=== PATIENT | male | born 1955 | race Caucasian/White ===

== ENCOUNTER 2018-10-27 11:45 | Emergency (ER) | payer SELFPAY ==
[~2018-10-27] VITALS: Ht 175.3 cm; Wt 79.4 kg
[~2018-10-27 11:45] MED LIST: ALBU90OI INH; Bactrim Ds Tab1 EACH PO; HYDACE5 PO; IBUP600 PO; OXYACE5T PO; PENVK250 PO; PENVK500 PO; Prednisone50 MG PO; RXHYDACE PO; RXPENVK250 PO
[2018-10-27] MEDS ORDERED: Vistaril25 MG PO (11:54)
[2018-10-27] MEDS ORDERED: NIX COMPLET324.86 ML TOP (12:02)
== END 2018-10-27 12:07 | disposition home or self-care (01) ==
LOC: ER 11:45
DX: S40.862A Insect bite (nonvenomous) of left upper arm, initial encounter (principal); S40.861A Insect bite (nonvenomous) of right upper arm, initial encounter; F17.200 Nicotine dependence, unspecified, uncomplicated; W57.XXXA Bitten or stung by nonvenomous insect and other nonvenomous arthropods, initial encounter
CPT/HCPCS: 99282

== ENCOUNTER 2022-10-19 07:48 | Emergency (ER) | payer MEDICARE, OTHER ==
[~2022-10-19] VITALS: Ht 177.8 cm; Wt 72.6 kg
[~2022-10-19 07:48] MED LIST changes: +CEPH500 PO; +NIX COMPLET324.86 ML TOP; +Vistaril25 MG PO
[2022-10-19] MEDS ORDERED: PERM5TC TOP (08:17)
== END 2022-10-19 08:30 | disposition home or self-care (01) ==
LOC: ER 07:48
DX: B86 Scabies (principal); F17.200 Nicotine dependence, unspecified, uncomplicated
CPT/HCPCS: 99282

== ENCOUNTER 2022-12-07 08:33 | Emergency (ER) | payer MEDICARE, OTHER ==
[~2022-12-07] VITALS: Ht 175.3 cm; Wt 68.0 kg
[~2022-12-07 08:33] MED LIST changes: +PERM5TC TOP
[2022-12-07] MEDS ORDERED: Bactrim Ds Tab1 EACH PO (10:37)
== END 2022-12-07 10:46 | disposition home or self-care (01) ==
LOC: ER 08:33
DX: L02.413 Cutaneous abscess of right upper limb (principal); F17.200 Nicotine dependence, unspecified, uncomplicated
CPT/HCPCS: 10061; 87070; 87075; 87205; 99283-25

== ENCOUNTER 2023-02-16 11:54 | Emergency (ER) | payer MEDICARE, OTHER ==
[~2023-02-16] VITALS: Ht 177.8 cm; Wt 90.7 kg
[2023-02-16 12:35] VITALS: BP 173/90
[2023-02-16] MEDS ORDERED: NIX TOP (12:38)
[2023-02-17] MEDS ORDERED: PERM5TC TOP (14:23)
== END 2023-02-16 12:40 ==
LOC: ER 11:54
DX: B86 Scabies (principal); Z79.899 Other long term (current) drug therapy; F17.200 Nicotine dependence, unspecified, uncomplicated
CPT/HCPCS: 99282

== ENCOUNTER 2023-05-09 13:06 | Emergency (ER) | payer MEDICARE, OTHER ==
[~2023-05-09] VITALS: Ht 177.8 cm; Wt 68.0 kg
[~2023-05-09 13:06] MED LIST changes: +NIX TOP
[2023-05-09 15:38] VITALS: BP 135/88
[2023-05-09] MEDS ORDERED: PERM5TC TOP (15:41)
== END 2023-05-09 15:42 | disposition home or self-care (01) ==
LOC: ER 13:06
DX: B86 Scabies (principal); F17.200 Nicotine dependence, unspecified, uncomplicated
CPT/HCPCS: 99282

== ENCOUNTER 2023-09-30 11:08 | Emergency (ER) | payer MEDICARE, OTHER ==
[~2023-09-30] VITALS: Ht 175.3 cm; Wt 63.5 kg
[2023-09-30 11:31] LABS: BASOPHILS ABSOLUTE AUTO 0.09 K/mm3 (0.00-0.23); BASOPHILS PERCENT AUTO 1 % (0-2); EOSINOPHILS ABSOLUTE AUTO 0.21 K/mm3 (0.00-0.68); EOSINOPHILS PERCENT AUTO 2 % (0-6); Hematocrit 36.7 % (37.0-53.0); Hemoglobin 12.1 g/dL (13.5-17.5); IMMATURE GRAN ABSOLUTE AUTO 0.02 K/mm3 (0.00-0.10); IMMATURE GRAN PERCENT AUTO 0 % (0-1); LYMPHOCYTES ABSOLUTE AUTO 2.48 K/mm3 (0.84-5.20); LYMPHOCYTES PERCENT AUTO 26 % (21-46); MONOCYTES ABSOLUTE AUTO 1.56 K/mm3 (0.16-1.47); MONOCYTES PERCENT AUTO 16 % (4-13); Mean Corpuscular HGB 31.7 pg (26.0-34.0); Mean Corpuscular Volume 96 fL (80-100); Mean Platelet Volume 10.1 fL (9.1-12.4); NEUTROPHILS ABSOLUTE AUTO 5.15 K/mm3 (1.96-9.15); NEUTROPHILS PERCENT AUTO 54 % (41-73); Platelet Count 403 K/mm3 (150-400); RDW Coefficient Variation 12.3 % (11.7-14.2); RDW Standard Deviation 43.2 fL (35.1-46.3); Red Blood Cell Count 3.82 M/mm3 (4.30-5.90); White Blood Cell Count 9.51 K/mm3 (4.00-11.30)
[2023-09-30 11:51] LABS: Albumin, Blood 2.8 g/dL (3.4-5.0); Albumin/Globulin Ratio 0.5 (0.8-1.8); Bilirubin, Total 0.4 mg/dL (0.1-1.0); Bun/Creatinine Ratio 16.6 (12.0-20.0); Calcium, Blood 9.1 mg/dL (8.5-10.1); Creatinine, Blood 0.66 mg/dL (0.60-1.20); Globulin, Blood 5.3 g/dL (2.2-4.0); Potassium, Blood 4.5 mmol/L (3.5-5.5); Total Protein, Blood 8.1 g/dL (6.4-8.2)
[2023-09-30 12:11] LABS: Influenza A, PCR NEGATIVE (NEGATIVE); Influenza B, PCR NEGATIVE (NEGATIVE); Resp Syncytial Virus, PCR NEGATIVE (NEGATIVE); SARS-Cov-2 (COVID-19) PCR, MMC NEGATIVE (NEGATIVE)
[2023-09-30] MEDS ORDERED: ONDA4ODT MM (12:38)
[2023-09-30] MEDS ORDERED: MECL25 PO (12:38)
[2023-09-30] MEDS ORDERED: NICO21TP TOP (12:38)
[2023-09-30 13:00] VITALS: BP 147/91
== END 2023-09-30 13:33 | disposition home or self-care (01) ==
LOC: ER 11:08
PROVIDERS: Emergency Medicine
DX: R53.83 Other fatigue (principal); R42 Dizziness and giddiness; F17.201 Nicotine dependence, unspecified, in remission; Z59.01 Sheltered homelessness
CPT/HCPCS: 0241U; 80053; 85025; 99283; A9270

== ENCOUNTER 2025-10-01 09:44 | Emergency (ER) | payer MEDICARE, OTHER ==
[~2025-10-01] VITALS: Ht 172.7 cm; Wt 63.5 kg
[~2025-10-01 09:44] MED LIST changes: +MECL25 PO; +NICO21TP TOP; +ONDA4ODT MM
[2025-10-01 10:40] VITALS: BP 150/100
== END 2025-10-01 10:42 | disposition home or self-care (01) ==
LOC: ER 09:44
DX: J34.1 Cyst and mucocele of nose and nasal sinus (principal); Z79.899 Other long term (current) drug therapy; F17.200 Nicotine dependence, unspecified, uncomplicated
CPT/HCPCS: 99282